=== PATIENT | male | born 1940 | race Caucasian/White ===

== ENCOUNTER 2017-03-15 17:55 | Inpatient (IN) | payer MEDICARE, OTHER ==
[~2017-03-15] VITALS: Ht 180.3 cm; Wt 101.0 kg
--- NOTE | ~2017-03-15 | NDGEN ---
PATIENT'S NAME: COURTNEY ALVAREZ [facility] AGE: 76 Y [address] ROOM: [place] [address] LOCATION: [facility] ADMIT DATE: 03/15/2017 Neurodiagnostics DISCHARGE DATE: FAMILY PHYSICIAN: Gray Soliman MD ATTENDING PHYSICIAN: JOSE MANUEL WEST PROCEDURE: ELECTROENCEPHALOGRAM DATE OF PROCEDURE: 03/16/2017 PROCEDURE PERFORMED: EEG. The patient had this EEG done on 03/16/2017 at 12:40 p.m. INDICATIONS FOR PROCEDURE: This 76-year-old male patient who possibly has a history of alcohol use and most recent history of stopping some medications that essentially acting. He had a generalized tonic-clonic seizure of the first-time onset. The patient was alert and oriented at the time of this study, but he has some cognitive deficits at baseline, which are more consistent with dementia. The general background rhythm is seen best in the posterior and central leads, reveals an 8 hertz approaching alpha rhythm with amplitudes between 15 to 25 microvolts. During the recording, there was a lot of movement artifacts and grimacing with eyes closed. There was no change in the general background rhythm and photic stimulation did not also change the background rhythm. There were a few periods during the recording of burst activities where the background rhythm was slowed and become delta. This was often seen throughout most of the leads, but in particular seemed to have a predilection for the temporal lobe. delta activity lasts for a period of 10 seconds. They were present with the patient's eyes closed. They would not follow by any type of generalization or other epileptiform features. They were seen elsewhere within the study. They may represent some type of postictal phenomena related to this seizure. IMPRESSION: The general background rhythm revealed a slightly slow 8 hertz rhythm that was intermittently mixed with 5-10 hertz delta rhythm that occasionally was seen throughout the recording. This may be associated with some recent seizure activity and may be a postictal phenomena as the patient was drowsy during the course of the EEG. There was no clear seizure activity or other epileptiform features such as spike and wave pattern. The patient was not on seizure medication at the time of this study. PATIENT'S NAME: COURTNEY ALVAREZ [facility] AGE: 76 Y [address] ROOM: [address] [address] LOCATION: [facility] ADMIT DATE: 03/15/2017 Neurodiagnostics DISCHARGE DATE: FAMILY PHYSICIAN: Gray Soliman MD ATTENDING PHYSICIAN: JOSE MANUEL WEST MD MADONNA BERGMAN/lolly /[id number] dtt: 04/12/17 1602 , JULIANE FERNANDO dtd: 03/18/17 1742
--- NOTE | ~2017-03-15 | HP ---
PATIENT'S NAME: COURTNEY ALVAREZ [facility] AGE: 76 Y [address] ROOM: [place] [address] LOCATION: [facility] ADMIT DATE: 03/15/2017 History & Physical DISCHARGE DATE: FAMILY PHYSICIAN: PHYSICIAN, UNKNOWN ATTENDING PHYSICIAN: JOSE MANUEL WEST DATE OF SERVICE: PRINCIPAL DIAGNOSES: Acute encephalopathy, fall, tonic-clonic seizures, and syncope. HISTORY OF PRESENT ILLNESS: This is a 76-year-old male with history of multiple comorbidities and complaints and type 2 diabetes, tobacco dependence, hypertension, an undisclosed psych disorder, hyperlipidemia, COPD, and coronary artery disease, admitted to the ICU here today after he presented to the emergency room at [facility] after he sustained a fall. I was not able to get much history out of the patient since he appeared confused and is barely responsive to my questions, but he does know his name and where he lives, and that is the most I can get out of him. In any case, the story is the patient lives at home with a caregiver that keeps an eye on him at home and was apparently found down this morning and caregiver subsequently had him come to the emergency room to be evaluated. While he was being evaluated in the emergency room at [place], he had a witnessed tonic-clonic type seizure, which lasted for about a minute and had been postictal since. Initial workup included mild elevation of troponin. However, EKG was nondiagnostic. Did have some prolonged QTC on his EKG though. The patient is lying in bed comfortably, although sleepy and has not gotten benzodiazepine for seizure. It appears that he is postictal currently. PAST MEDICAL HISTORY: 1. Type 2 diabetes. 2. Coronary artery disease. 3. Paroxysmal atrial fibrillation, on Coumadin. 4. Hyperlipidemia. 5. Hypertension. FAMILY HISTORY: Attempted to get family history from the patient, but due to his current mental status and family not being around him, not able to get full family history. SOCIAL HISTORY: Attempted to gather social history but was not able to gather social history due to the patient's current mental state as well. PATIENT'S NAME: COURTNEY ALVAREZ [facility] AGE: 76 Y [address] ROOM: [place] [address] LOCATION: [facility] ADMIT DATE: 03/15/2017 History & Physical DISCHARGE DATE: FAMILY PHYSICIAN: PHYSICIAN, UNKNOWN ATTENDING PHYSICIAN: JOSE MANUEL WEST REVIEW OF SYSTEMS: I was not able to conduct a full review of systems due to his current mental state. However, the patient is resting in bed. Does not appear to be in distress, but he is sleepy minimally responsive. LABORATORY DATA: Laboratory values from [facility]: Creatinine of 1 and troponin mildly elevated at 0.7. CT of the head unremarkable. PHYSICAL EXAMINATION: VITAL SIGNS: Blood pressure 118/74, heart rate 74, respiratory rate 23, and saturating 96% on 2 L oxygen per nasal cannula. GENERAL: The patient is groggy but arousable. HEENT: Dry mucous membranes. No scleral icterus or conjunctival pallor noted. SKIN: Bilateral venous insufficiency ulcers on the lower extremities. HEART: S1 and S2. Regular rate and rhythm and tachycardic. CHEST: Diffuse wheezing bilaterally. ABDOMEN: Mildly distended and tender to deep palpation. Positive bowel sounds. Soft. NEUROLOGIC: The patient moves all his extremities. MUSCULOSKELETAL: No joint effusion, tenderness, or erythema noted. ASSESSMENT AND PLAN: 1. Acute encephalopathy. This appears to be due to postictal state. The patient was noted to have tonic-clonic type seizure in the emergency room at [facility] that lasted about 2 minutes. The patient is still sleepy. The patient apparently had not gotten any benzodiazepine for this. We will continue to monitor. 2. New onset seizure. Unsure if he has a history of this, but reviewing his records, does not appear to be the case. I will get an MRI of his brain in the morning in any case. The patient is noted to be on benzodiazepines at home and is also known to be noncompliant with his medication and I wonder if this is a benzodiazepine withdrawal seizure. I will have Neurology evaluate him in the morning for this. 3. Fall with possible relation to syncope. I will trend his troponins. EKG nondiagnostic, but has a prolonged QTC. I will repeat his EKG. Per report, his QTC is over 530, which was a change after his seizure like episode, which was in a normal range prior to that. The patient is known to Dr. Hoffman and he will be evaluated by Dr. Hoffman as well. 4. Type 2 diabetes. We will use sliding scale insulin and Accu-Cheks. 5. Chronic obstructive pulmonary disease, long history of smoking. We will continue his home nebulizer treatment and we will monitor. 6. Deep vein thrombosis prophylaxis. We will use SCDs and subcutaneous heparin. 7. Paroxysmal atrial fibrillation, on Coumadin. I will hold the patient's PATIENT'S NAME: COURTNEY ALVAREZ [facility] AGE: 76 Y [address] ROOM: [place] [address] LOCATION: [facility] ADMIT DATE: 03/15/2017 History & Physical DISCHARGE DATE: FAMILY PHYSICIAN: PHYSICIAN, UNKNOWN ATTENDING PHYSICIAN: JOSE MANUEL WEST Coumadin at this point due to his multiple morbidities, fall risk, and noncompliant issues and re-evaluate. MD LIBRADO CHURCHILL/lloly /[id number] D: 326 T: 000 HISTORY & PHYSICAL
--- NOTE | ~2017-03-15 | CON ---
PATIENT'S NAME: COURTNEY ALVAREZ [facility] AGE: 76 Y [address] ROOM: [id number] [place], [place] [address] LOCATION: [facility] ADMIT DATE: 03/15/2017 Consultation DISCHARGE DATE: FAMILY PHYSICIAN: Gray Soliman MD ATTENDING PHYSICIAN: JOSE MANUEL WEST DATE OF CONSULTATION: 03/16/2017 REFERRING PHYSICIAN: JULIANE FERNANDO MD The patient was seen in neurologic consultation on 03/16/2017 at 9:30 p.m. HISTORY OF PRESENT ILLNESS: History is essentially delved from the patient's son's discussion with me. He states that his father is a 76-year-old male patient whom he states has been diagnosed with some type of dementing process over the course of many years, perhaps, going out to 5-6 years. He really has poor insight into the nature of his father's diagnosis. He does believe that there is some psychiatric overlay here playing a role, perhaps some depression that commence with the loss of the patient's 7 years ago. Son also points to dementia being present in the patient's mother in the age of 70s, but no other persons in the family had dementia. The son says that he finds his father is somewhat withdrawn on a daily basis, has symptoms of anhedonia, and has poor executive functioning to which he has difficulty in taking care of his basic grooming and bathing as well as any monetary issues, such as paying bills. It is a possibility the patient has an alcohol problem as well as this was mentioned to me by a note from the nurse who spoke to us as the patient was transferred here from the emergency room in [place]. Apparently, the patient has had odd changes in his behavior including some alcohol use, which prompted him to have loss of his privileges to drive. 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 Other than these changes in his psychiatric history, he holds a diagnosis of hyperlipidemia, COPD, coronary artery disease. He also smokes a pack of cigarettes a day. He has a history of hypertension. What prompted the admission here to our hospital as a transfer from [place] is that the patient who does live alone, does have a caregiver who comes in and watches over him apparently found him down at home in the morning. The patient was sent to the emergency room for evaluation. In the emergency room at [place], he was witnessed to have a generalized tonic-clonic seizure that lasted about 1 minute, but he clearly had a postictal period of lethargy and poor responsiveness for many hours. He was noted on laboratory results essentially to have normal labs, but he had a troponin elevation at 1.120, which is subsequently gone down to 0.97. The etiology of his troponin level was possibly in the setting of a cardiac event, but a troponin elevation PATIENT'S NAME: COURTNEY ALVAREZ [facility] AGE: 76 Y [address] ROOM: [id number] [place] [id number] LOCATION: [facility] ADMIT DATE: 03/15/2017 Consultation DISCHARGE DATE: FAMILY PHYSICIAN: Gray Soliman MD ATTENDING PHYSICIAN: JOSE MANUEL WEST can be seen in generalized seizures. Coagulation profile included an INR of 1.13, which is low and not consistent with the patient taking anticoagulation. We were told by the son that he stopped his warfarin therapy for atrial fibrillation as well as stopping multiple medications approximately 2 weeks ago. Here in the hospital, the patient was not placed on any antiseizure medication nor given benzodiazepines, this was done as the patient has remained stable and after being postictal, started to wake up and follow basic commands. When I saw the patient, he was eating dinner and appeared to be in no acute distress. He was communicative, but very superficially, did not engage in much conversation. He had a very flat affect, did not appear to be particularly angry or agitated, but was somewhat fidgety as sitting up in his bed, moving his clothing around and pulling on some wires connected via the monitor. One time when watching him, he suddenly sat up in bed and wanted to get out of the bed to use the urinal, but did not call for any help. He did not seem to be overly confused, but this was inappropriate as he could have fallen. The patient himself did not have any complaints. He really had no insight into why he came to the hospital and after being told that he had a generalized seizure, he did not have much of a response to this. He did not engage in any discussion about his medical issues and simply was inappropriately non-caring. PRIOR MEDICAL HISTORY: Coronary artery disease; atrial fibrillation, supposedly on anticoagulation; history of COPD; depression; he is a current smoker; he has a history of diabetes type 2; and hyperlipidemia. SOCIAL HISTORY: That he has 5 boys, 1 child was adopted. This patient reportedly lives alone for the past 7 years since his . He was retired from multiple jobs during his life. He held down at least 3 jobs up until about 7 years ago, retired from the [employer], but also did work for the [employer]. He smokes a pack of cigarettes a day. The patient denied alcohol use though this is speculative and goes against report from a nurse in his neighborhood who reported to our nurse that the patient has had a recent arrests for DWI. This report was not confirmed and not discussed with the patient's son. FAMILY HISTORY: His mother in the 90s, she had Alzheimer's. Father's father in 70s of an unknown cause. ALLERGIES: NO KNOWN DRUG ALLERGIES. HOME MEDICATIONS: PATIENT'S NAME: COURTNEY ALVAREZ [facility] AGE: 76 Y [address] ROOM: [place] [address] [facility] ADMIT DATE: 03/15/2017 Consultation DISCHARGE DATE: FAMILY PHYSICIAN: Gray Soliman MD ATTENDING PHYSICIAN: JOSE MANUEL WEST 1. Simvastatin 40 mg daily. 2. Quetiapine 25 mg twice a day. 3. Omeprazole. 4. Isosorbide mononitrate 30 mg extended release at bedtime. 5. Coumadin, unknown dose. 6. Humulin N insulin 60 units in the morning and 20 units at bedtime. 7. Carvedilol 3.125 mg twice a day. 8. Aspirin 81 mg daily. 9. Albuterol sulfate inhalation nebulizers. 10. Advair Diskus 250/50 mcg inhalation twice a day. 11. Tamsulosin 0.4 mg at bedtime. 12. Spiriva 18 mcg inhalation in the morning. 13. Torsemide 150 mg daily. 14. Tramadol 50 mg 2 times a day as standing for pain. CURRENT MEDICATIONS: Here in the hospital, he was started on: 1. Aspirin 81 mg p.o. daily. 2. Lipitor 40 mg p.o. daily. REVIEW OF SYSTEMS: CONSTITUTIONAL: Mr. Alvarez has had a generalized tonic-clonic seizure, likely associated as to why he was found down at home. His seizure was witnessed in the emergency room. He became postictal and confused during the course of the day and at least over the course of 8-9 hours, he was quite lethargic, but now according to the son, he is back to his baseline. He was eating and did not appear to be in acute distress though he was a bit fidgety and acting somewhat strange, simply put he had a very flat affect, did not seem to be connected as to why he was in the hospital, did not ask any spontaneous questions, answered questions very superficially. CARDIAC: There is history of coronary artery disease and an elevation in troponin. Noted on EKG to show first-degree AV block. Mentioned elevation in the troponin in the setting of a normal creatinine level, possibly associated with a generalized tonic-clonic seizure. PHYSICAL EXAMINATION: GENERAL: The patient is not spontaneous in his speech, answers questions appropriately. He was eating comfortably. He answered questions and had basic conversations with his son. Son reports that he had no recent difficulty in his neurologic skills such as using his arms or legs or walking. There is no known history of ever having the patient with seizures. I did not discuss with the patient necessarily about the patient's alcohol use in front of the patient himself. The patient denied alcohol use. VITAL SIGNS: Pulse of 68 and regular, respiration rate 12, blood pressure 122/72, temperature is afebrile. PATIENT'S NAME: COURTNEY ALVAREZ [facility] AGE: 76 Y [address] ROOM: [address] [address] [facility] ADMIT DATE: 03/15/2017 Consultation DISCHARGE DATE: FAMILY PHYSICIAN: Gray Soliman MD ATTENDING PHYSICIAN: JOSE MANUEL WEST NEUROLOGIC: Cranial nerves: Pupils equal and reactive to light and accommodation. Extraocular muscles are intact. His power was grossly normal in all 4 limbs at 5/5 grade power. Normal bulk and tone. Testing of coordination was brief as the patient's participation is somewhat fleeting, but he did [id number] adequately. He did not do rapid alternating hand movements. I did not ambulate the patient currently. IMPRESSION: Mr. Alvarez is a 76-year-old male patient who has a history of dementia based upon the son's discussion with me privately. 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 I do believe that he abuses alcohol as we were told that he had lost his license to drive. Quite frankly from knowing the patient here briefly, I am not sure as to why he had the ability to drive or even to live alone. He does have some assistance that comes to his home and probably helps him with managing bathing, but according to the nurse, he appeared to be unkempt and disheveled and not bathed. Lookup at his medication did include an antipsychotic medication though I would not expect the patient to have a withdrawal seizure from stopping an antipsychotic. Of more concern is probably his alcohol history and I believe stopping alcohol may have had a role here in a withdrawal seizure, it certainly is a speculation, we have no proof of this. Laboratory results do not point to issues with long-term alcohol use such as low platelet count or elevation in an AST, but this is awfully nonspecific. I did start the patient on memantine for his dementia. He needs to be followed up in our office since I am seeing him for the first time. We will wean up the dosing from 5 mg daily to 10 mg twice a day over the course of the upcoming months. His dementia is probably mixed, associated with reactive depression due to his 's though this is quite longstanding since his 's was 7 years ago, may have schizoaffective disorder, but we do not have much to go on from a psychiatric history and the patient's son who was here could not give me any information with his psychiatric history. I am told that the patient is going to have a cardiac workup and the issue of anticoagulation has been discussed with the son. Certainly, if the patient is not taking his medications and has poor insight into the nature as to why he takes anticoagulation, the importance of this is a very poor sign indeed, I suspect that his dementia is at least moderate to severe and I am not sure of even fall risk issues with this patient who I saw suddenly get up out of bed spontaneously and inappropriately and certainly looked to be a fall risk to me. Nonetheless, the risk for a stroke due to arrhythmia is certainly a consideration and be discussed further with the patient's family. PATIENT'S NAME: COURTNEY ALVAREZ [facility] AGE: 76 Y [address] ROOM: [address] [address] LOCATION: [facility] ADMIT DATE: 03/15/2017 Consultation DISCHARGE DATE: FAMILY PHYSICIAN: Gray Soliman MD ATTENDING PHYSICIAN: JOSE MANUEL WEST MD JRM/raull /[id number] d: 03/19/17 0304 t: 04/12/17 1605, CONSULTATION REPORT
--- NOTE | ~2017-03-15 | CATH ---
Cardiac Diagnostic + PCI Report Demographics Patient Name KIM Barboza Gender Male Date of 1940 Age 76 year(s) Patient Number [id number] Date of Study 03/17/2017 Visit Number [id number] Room Number G6[address] [place] [id number] Ht 180.34 cm Wt 106.6 kg Referring Dalton Castellano MD Primary Physician Physician Berry Castellano MD Secondary Physician Physician Diagnostic Dalton Castellano MD Assisting Physician Physician Interventional Dalton Castellano MD Physician Powerplant Operator Physician Findings and Conclusions Diagnostic Findings and Conclusion 2 vessel CAD Right common iliac is 100% occluded with collaterals Diagnostic Recommendations PCI of RCA Interventional Findings and Conclusion .014 Prowater 2.5 x 20 Emerge 2.5 x 20 Rebel 85% - 0% 3.5 x 20 Rebel 99% - 0% Interventional Recommendations DAP x 1 month Procedure Description The patient was brought to the diagnostic cardiac catheterization-EP laboratory in the fasting, non-sedated state. Informed consent was obtained in the written and verbal form after the risks and benefits were explained. The patient had no further questions and agreed to proceed. The planned puncture-incision site(s) were shaved and prepped with ChloraPrep and draped in the usual sterile manner. Conscious sedation, supplemental oxygen, and pain control medications were delivered by a registered nurse under physician guidance. Surface ECG rhythm, blood pressure measurement, and pulse oximetry were monitored throughout the procedure. Arterial access. The access site was infiltrated with lidocaine. The vessel was entered with the Seldinger technique. A sheath was advanced into the vessel and used for catheter placement. Selective left coronary angiography. A catheter was advanced into the left coronary vessel ostium under Fluoroscopic guidance. Contrast was injected by hand. Images were obtained in multiple projections. Selective right coronary angiography. A catheter was advanced into the right coronary vessel ostium under fluoroscopic guidance. Contrast was injected by hand. Images were obtained in multiple projections. Angioplasty and Stent Placement: A guiding catheter was used to intubate the vessel. A 0.14 wire was then used to cross the lesion. A balloon catheter was placed across the lesion and inflated. The balloon catheter was then removed. A Bare Metal Stent was placed and inflated. Post placement angiograms were performed. Arterial artery hemostasis was achieved. The patient was transferred to a regular nursing floor via cart accompanied by a nurse. The patient left the laboratory in stable condition. Diagnostic Cath Status: Urgent Interventional Cath Status: Urgent Procedure Procedure Type Diagnostic procedure:Angiography:, Coronary Angios PCI procedure:Bare Metal Coronary Stent:, RCA Indications: Abnormal enzymes and Acute TX with elevated troponin. The procedure was explained in detail to the patient. Risks, complications and alternative treatments were reviewed. Written consent was obtained. Angiographic Findings Dominance: Right Cardiac Arteries and Lesion Findings LMCA: Normal (0% Stenosis).large LAD: Single stenosis.large, distal stent, 50% in-stent restenosis; diag 1 is medium, normalThere is a previous stent on Mid LAD Mid subsection showing focal ISR. LCx: Normal (0% Stenosis).medium, normal; OM is medium, normal RCA: Large, dominant; Pl is medium, normal; PDA is medium, normal Lesion on Dist RCA: Distal subsection.85% stenosis 20 mm length reduced to 0%. Pre procedure MERARY II flow was noted. Post Procedure MERARY III flow was present. The guidewire cross was successful.The lesion was diagnosed as a low risk lesion. Devices used - Emerge Balloon 2.5 x 20. 1 inflation(s) to a max pressure of: 6 indira. - 2.5 x 20 Rebel Stent. 2 inflation(s) to a max pressure of: 14 indira. - 2.5 x 20 Rebel Stent. 1 inflation(s) to a max pressure of: 18 indira. Lesion on Mid RCA: Distal subsection.99% stenosis 20 mm length reduced to 0%. Pre procedure MERARY II flow was noted. Post Procedure MERARY III flow was present. The guidewire cross was successful.The lesion was diagnosed as a low risk lesion.Culprit lesion. Devices used - Prowater Wire .014 x 180. Number of passes: 1. - Emerge Balloon 2.5 x 20. 1 inflation(s) to a max pressure of: 14 indira. - 3.5 x 20 Rebel Stent. 2 inflation(s) to a max pressure of: 15 indiar. Coronary Tree Procedure Data Procedure Date Date: 03/17/2017Start: 08:54 AMEnd: 09:54 AM Entry Locations - Retrograde Percutaneous access was performed through the Right Femoral artery. A 6 Fr sheath was inserted. Hemostasis was successfully obtained using Manual Compression. - Retrograde Percutaneous access was performed through the Left Femoral artery (Primary location). A 6 Fr sheath was inserted. Hemostasis was successfully obtained using Angio-Seal STS PLUS ([facility]). Procedure Medications Order and Administration + + + + + !Time !Medication !Dosage !Route ! + + + + + !03/17/2017 08:41 !Potassium Chloride !40 meq !I.V. ! !AM ! ! ! ! + + + + + 03/17/2017 08:48 !Oxygen !6 l/min !NC ! !AM ! ! ! ! + + + + + 03/17/2017 08:48 !Fentanyl !25 mcg !I.V. ! !AM ! ! ! ! + + + + + 03/17/2017 08:52 !Versed !0.5 mg !I.V. ! !AM ! ! ! ! + + + + + !03/17/2017 09:13 !Angiomax (Bivalirudin) !80 mg !I.V. bolus ! !AM !(ACC_5) ! ! ! + + + + + !03/17/2017 09:14 !Fentanyl !25 mcg !I.V. ! !AM ! ! ! ! + + + + + !03/17/2017 09:23 !Nipride !50 mcg !I.C. ! !AM ! ! ! ! + + + + + !03/17/2017 09:26 !Fentanyl !25 mcg !I.V. ! !AM ! ! ! ! + + + + + !03/17/2017 09:32 !Duglase !75 mcg !I.C. ! !AM ! ! ! ! + + + + + !03/17/2017 09:14 !Angiomax (Bivalirudin) !1.75 mg/kg/hr!I.V. bolus ! !AM !(ACC_5) ! ! ! + + + + + !03/17/2017 09:35 !Angiomax (Bivalirudin) ! !I.V. bolus ! !AM !(ACC_5) ! ! ! + + + + + !03/17/2017 09:45 !Brilinta (Ticagrelor) !180 mg !P.O. ! !AM !(ACC_20) ! ! ! + + + + + Devices Used - A6 Fr. BS JL 4 Diag. Catheterwas used for:Left coronary angiography. - A6 Fr. BS JR 4 Diag. Catheterwas used for:Right coronary angiography. - A6 Fr. BS Angled Pigtail Diag. Catheterwas used for:LV Pressures. - A6 Fr. JR4 Guide Catheterwas used for:RCA Intervention. Contrast Material - Isovue 139313 ml Fluoroscopy Time: Diagnostic: 12:48 minutes. Total: 12:48 minutes. Fluoroscopy Dose: Diagnostic: 2753 mGy. Total: 2753 mGy. Estimated Blood Loss: 20 ml. Additional [facility] PCI Information PCI Indication:PCI for high risk Non-STEMI or unstable angina. Medical History Allergies - No known allergies. Risk Factors The patient risk factors include:prior PCI on 08/08/2009;peripheral arterial disease, obesity, hypertension, family history of premature CAD, insulin-treated diabetes mellitus, chronic lung disease, last creatinine: 0.7 mg/dl, creatinine clearance: 137.48 ml/min, dyslipidemia, Current/Recent(w/in 1 year) tobacco use, prior heart failure and prior TX . Admission Data Admission Date: 03/15/2017 Admission Time: 06:14 PM Admit Source: [facility] facility Insurance Payors: Medicare. Admission Medications + +------+-------+ + + + + !Medication!Dosage!Times !Last !Last !Administered !Comments ! ! ! !Per Day!Delivery !Delivery ! ! ! ! ! ! !Date !Time ! ! ! + +------+-------+ + + + + !Aspirin ! ! ! ! ! ! ! !(any) ! ! ! ! ! ! ! + +------+-------+ + + + + !Statin ! ! ! ! ! ! ! !(any) ! ! ! ! ! ! ! + +------+-------+ + + + + Clinical Evaluation Leading to Procedure - The patient's CAD presentation was assessed as: Non-STEMI.The symptom onset was first noted on 03/15/2017 06:00 PM(time was estimated). - There were no anginal symptoms. Hemodynamics Condition: Rest O2 Consumption: Estimated: 257.74Heart Rate: 68 bpm Pressures (mmHg) +-----+ + !Site !Pressure ! +-----+ + !AO !119/54 (81) ! +-----+ + Shunts Oxygen Values O2 Capacity 149.6 O2 Consumption 257.74 Discharge Data Discharge Date: 03/21/2017 Hospital Status: Inpatient Signatures dtt: Gray Hoffman (cardio) dtd: 03/17/17 0854 Physician Self Edit
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
--- NOTE | ~2017-03-15 | DS ---
PATIENT'S NAME: COURTNEY ALVAREZ [facility] AGE: 76 Y [address] ROOM: [place] [address] LOCATION: GPCU ADMIT DATE: 03/15/2017 Discharge Summary DISCHARGE DATE: 03/21/2017 FAMILY PHYSICIAN: Gray Soliman MD ATTENDING PHYSICIAN: Mary Lou Mccann ADMITTING DIAGNOSIS: Kwd-TO-mwogbsw elevation myocardial infarction. DISCHARGE DIAGNOSIS: Ixz-EF-myvpjsz elevation myocardial infarction, status post stent placement. SECONDARY DIAGNOSES: 1. Syncope. 2. Questionable seizure. 3. Acute on chronic diastolic heart failure. 4. Dementia with disturbance behavior. 5. Diabetes mellitus, type 2. 6. Paroxysmal atrial fibrillation. 7. Obesity. 8. Dementia. 9. Medical non-compliance. PROCEDURES: 1. Echocardiogram. 2. Coronary angiogram done on 03/17/2017 with two bare-metal stents placement on the RCA by Dr. Hoffman. CONSULTATIONS: Neurology and Cardiology. HISTORY OF PRESENT ILLNESS: The patient is a 76-year-old gentleman with history of multiple comorbidities including type 2 diabetes mellitus, tobacco dependence, hypertension, dementia with behavioral disturbance, hyperlipidemia, COPD, and coronary artery disease, who is here with syncope. The patient lives by himself, and has a caregiver who keeps an eye on him and was found at home on the floor, found down. The patient was taken to the Emergency Room at [facility], and over there, there was a questionable tonic-clonic type seizure that was witnessed. The patient was transferred to our hospital for further workup of possible seizure and syncope. HOSPITAL COURSE: The patient was admitted. On initial evaluation, the patient was noted to have elevated troponin. CT of head was unremarkable. The patient was seen by social worker health services. The patient had echocardiogram and also a coronary angiogram done on 03/17/2017, status post two times bare-metal stent placement on the RCA. The patient was started on aspirin and Brilinta. The patient was also seen by Neurology for seizure workup. The patient was seen by Neurology, PATIENT'S NAME: COURTNEY ALVAREZ [facility] AGE: 76 Y [address] ROOM: [place] [address] LOCATION: GPCU ADMIT DATE: 03/15/2017 Discharge Summary DISCHARGE DATE: 03/21/2017 FAMILY PHYSICIAN: Gray Soliman MD ATTENDING PHYSICIAN: Mary Lou Mccann no seizure was witnessed during stay, and no anti-seizure medication was started. The patient lives by himself, and there was a concern of him being noncompliant with medication and also has moderate dementia with behavioral disturbance. Family member is worried for patient to go back home. The patient was seen by PT/OT during stay, and was a candidate for [facility] before discharge. The patient was discharged to [facility]. The patient has a history of paroxysmal atrial fibrillation, and Coumadin was held for his coronary angiogram. However, after coronary angiogram, Coumadin was restarted. The patient was also found to be in acute diastolic heart failure, and the patient was given diuretics with adequate improvement. Of note, the patient has chronic hypoxia secondary to COPD, and is on 3 L to 4 L at home. CONDITION: Stable. DISPOSITION: Prison Facility. DISCHARGE MEDICATIONS: Please see MAR. DISCHARGE INSTRUCTIONS: To follow up with the house physician with a daily INR for Coumadin. To keep Coumadin between 2 to 3. FOLLOWUP: Follow up with house physician, Cardiology, and Neurology as outpatient. Greater than 30 minutes was spent on patient care. Greater than 30 minutes was spent on discharge planning. MD OMID HERBERT/modl /[id number] d: 03/22/17 0209 t: 04/01/17 1301, DISCHARGE SUMMARY
--- NOTE | ~2017-03-15 | ECHO ---
Transthoracic Echocardiography Report (TTE) Demographics Patient Name COURTNEY ALVAREZ Date of Study 03/16/2017 Patient Number [id number] Visit Number [id number] Date of 1940 Room Number G6214 Accession Number [id number] Gender Male Age 76 year(s) Referring Dalton Castellano MD Rehabilitation Supervisor Physician Physician Interpreting Dalton Castellano MD Social Media Campaign Manager Physician Supervising Ordering Physician MD/SKINNY Nurse Stress Vice President Of Academic Affairs Conclusions Procedure Type of Study TTE procedure:2D Echocardiogram. Procedure Date Date: 03/16/2017 Start: 05:09 PM M-Mode/2D Measurements LV Diastolic Dimension: 4.62 cm LV Systolic Dimension: 3.51 cm AO Root Dimension: 2.8 cm LVOT: 2 cm LVOT VTI: 19.8 cm LV Stroke volume: 62.17 ml Doppler Measurements AV Peak Velocity: 2.07 m/s MV Peak E-Wave: 1.36 m/s AV Peak Gradient: 17.14 mmHg AV Mean Gradient: 8 mmHg MV P1/2t: 53 msec LVOT Peak Velocity: 0.82 m/s TR Velocity:1.48 m/s PV Peak Velocity: 1.2 m/s TR Gradient:8.76 mmHg PV Peak Gradient: 5.76 mmHg A' Septal Velocity: 0.09 m/s E' Septal Velocity: 0.07 m/s A' Lateral Velocity: 0.26 m/s E' Lateral Velocity: 0.17 m/s Findings Left Ventricle Mild concentric left ventricular hypertrophy. Wilson is mild to moderate hypokinetic LVEF is 50-55% Right Ventricle Mild to moderately dilated right ventricle. Left Atrium Normal left atrial size. Right Atrium The right atrium is mild to moderately dilated. Aortic Valve There is mild aortic regurgitation by color Doppler. The aortic valve is moderately sclerotic. Tricuspid Valve Normal tricuspid valve structure and function. Pulmonic Valve Normal pulmonic valve structure and function. Pericardial Effusion No evidence of pericardial effusion. Pleural Effusion No evidence of pleural effusion. Signature dtt: Gray Hoffman (cardio) dtd: 03/16/17 1709 Physician Self Edit
[2017-03-16 01:40] LABS: BASOPHIL # 0.1 K/uL (0.0-0.2); BASOPHIL % 0.6 %; EOSINOPHIL # 0.1 K/uL (0.0-0.5); EOSINOPHIL % 0.5 %; HEMATOCRIT 37.5 % (37.0-53.0); HEMOGLOBIN 11.8 g/dL (11.0-16.0); IMMATURE GRANULOCYTE % 0.2 %; LYMPHOCYTE # 1.7 K/uL (0.8-4.0); LYMPHOCYTE % 18.2 %; MCH 31.1 pg (27.0-34.0); MCHC 31.5 gm/dL (32.0-36.5); MCV 98.9 fl (83.0-98.0); MONOCYTE # 0.7 K/uL (0.0-1.0); MPV 9.3 fl (9.4-12.4); NEUTROPHIL # (ANC) 6.8 K/uL (1.4-9.0); NEUTROPHIL % 73.5 %; NRBC % 0 /100WBC (0-0.00); PLATELET COUNT 233 K/uL (150-450); RBC 3.79 M/uL (3.50-5.50); RDW-CV 13.7 % (11.9-14.6); WBC 9.3 K/uL (4.0-11.0)
[2017-03-16 01:57] LABS: ALBUMIN 2.4 gm/dL (3.5-5.0); ANION GAP 10.5 (10.0-19.0); CALCIUM 7.6 mg/dL (8.5-10.5); CREATININE 0.8 mg/dL (0.6-1.3); PHOSPHORUS 2.6 mg/dL (2.5-4.9); POTASSIUM 3.5 mMol/L (3.7-5.1)
[2017-03-16 01:58] LABS: INR - (THERAPEUTIC) 1.08 (0.92-1.07); PROTIME 11.4 SECONDS (9.8-11.4)
[2017-03-16 06:13] LABS: BASOPHIL # 0.1 K/uL (0.0-0.2); BASOPHIL % 0.8 %; EOSINOPHIL # 0.1 K/uL (0.0-0.5); EOSINOPHIL % 0.9 %; HEMATOCRIT 34.9 % (37.0-53.0); HEMOGLOBIN 11.1 g/dL (11.0-16.0); IMMATURE GRANULOCYTE % 0.4 %; LYMPHOCYTE # 1.8 K/uL (0.8-4.0); LYMPHOCYTE % 19.3 %; MCH 31.3 pg (27.0-34.0); MCHC 31.8 gm/dL (32.0-36.5); MCV 98.3 fl (83.0-98.0); MONOCYTE # 0.7 K/uL (0.0-1.0); MONOCYTE % 7.7 %; MPV 9.2 fl (9.4-12.4); NEUTROPHIL # (ANC) 6.6 K/uL (1.4-9.0); NEUTROPHIL % 70.9 %; NRBC % 0 /100WBC (0-0.00); PLATELET COUNT 226 K/uL (150-450); RBC 3.55 M/uL (3.50-5.50); RDW-CV 13.6 % (11.9-14.6); WBC 9.2 K/uL (4.0-11.0)
[2017-03-16 06:22] LABS: INR - (THERAPEUTIC) 1.13 (0.92-1.07); PROTIME 11.9 SECONDS (9.8-11.4)
[2017-03-16 06:26] LABS: ALBUMIN 2.4 gm/dL (3.5-5.0); ANION GAP 9.2 (10.0-19.0); CALCIUM 7.6 mg/dL (8.5-10.5); CREATININE 0.9 mg/dL (0.6-1.3); MAGNESIUM 2.1 mg/dL (1.8-2.6); PHOSPHORUS 2.2 mg/dL (2.5-4.9); POTASSIUM 3.2 mMol/L (3.7-5.1)
[2017-03-17 05:23] LABS: BASOPHIL # 0.1 K/uL (0.0-0.2); BASOPHIL % 1.1 %; EOSINOPHIL # 0.2 K/uL (0.0-0.5); HEMATOCRIT 34.6 % (37.0-53.0); IMMATURE GRANULOCYTE % 0.2 %; LYMPHOCYTE # 1.3 K/uL (0.8-4.0); LYMPHOCYTE % 16.4 %; MCH 31.4 pg (27.0-34.0); MCHC 31.8 gm/dL (32.0-36.5); MCV 98.9 fl (83.0-98.0); MONOCYTE # 0.7 K/uL (0.0-1.0); MONOCYTE % 8.1 %; MPV 9.2 fl (9.4-12.4); NEUTROPHIL # (ANC) 5.9 K/uL (1.4-9.0); NEUTROPHIL % 72.2 %; NRBC % 0 /100WBC (0-0.00); PLATELET COUNT 218 K/uL (150-450); RDW-CV 13.5 % (11.9-14.6); WBC 8.2 K/uL (4.0-11.0)
[2017-03-17 05:29] LABS: INR - (THERAPEUTIC) 1.15 (0.92-1.07); PROTIME 12.1 SECONDS (9.8-11.4)
[2017-03-17 05:37] LABS: ALBUMIN 2.3 gm/dL (3.5-5.0); ANION GAP 10.1 (10.0-19.0); BLOOD UREA NITROGEN 7 mg/dL (6-24); CHLORIDE 106 mMol/L (96-110); CO2 32 mMol/L (22-32); CREATININE 0.7 mg/dL (0.6-1.3); PHOSPHORUS 2.1 mg/dL (2.5-4.9); POTASSIUM 3.1 mMol/L (3.7-5.1); SODIUM 145 mMol/L (135-145)
[2017-03-17 05:38] LABS: CALCIUM 7.4 mg/dL (8.5-10.5)
[2017-03-18 05:46] LABS: BASOPHIL # 0.1 K/uL (0.0-0.2); BASOPHIL % 0.5 %; EOSINOPHIL # 0.2 K/uL (0.0-0.5); EOSINOPHIL % 2.2 %; HEMATOCRIT 35.6 % (37.0-53.0); HEMOGLOBIN 11.5 g/dL (11.0-16.0); IMMATURE GRANULOCYTE % 0.2 %; LYMPHOCYTE # 1.4 K/uL (0.8-4.0); LYMPHOCYTE % 15.5 %; MCH 30.9 pg (27.0-34.0); MCHC 32.3 gm/dL (32.0-36.5); MCV 95.7 fl (83.0-98.0); MONOCYTE # 0.6 K/uL (0.0-1.0); MONOCYTE % 6.9 %; MPV 9.4 fl (9.4-12.4); NEUTROPHIL # (ANC) 6.9 K/uL (1.4-9.0); NEUTROPHIL % 74.7 %; NRBC % 0 /100WBC (0-0.00); PLATELET COUNT 256 K/uL (150-450); RBC 3.72 M/uL (3.50-5.50); RDW-CV 13.2 % (11.9-14.6); WBC 9.2 K/uL (4.0-11.0)
[2017-03-18 05:51] LABS: INR - (THERAPEUTIC) 1.16 (0.92-1.07); PROTIME 12.2 SECONDS (9.8-11.4)
[2017-03-18 06:04] LABS: ALBUMIN 2.6 gm/dL (3.5-5.0); ANION GAP 9.3 (10.0-19.0); CALCIUM 7.6 mg/dL (8.5-10.5); CREATININE 0.8 mg/dL (0.6-1.3); POTASSIUM 3.3 mMol/L (3.7-5.1); TOTAL BILIRUBIN 0.9 mg/dL (0.0-1.5); TOTAL PROTEIN 6.1 g/dL (6.0-8.4)
[2017-03-18] MEDS ORDERED: TYLENOL EXTRA500 MG PO (09:52)
[2017-03-18] MEDS ORDERED: COREG 3.1253.125 MG PO (09:53)
[2017-03-18] MEDS ORDERED: ASPIRIN LO-DOSE81 MG PO (09:53)
[2017-03-18] MEDS ORDERED: IMDUR30 MG PO (09:54)
[2017-03-18] MEDS ORDERED: KLOR-CON SPRIN10 MEQ PO ×2 (09:54→09:55)
[2017-03-18] MEDS ORDERED: FLOMAX0.4 MG PO (09:56)
[2017-03-18] MEDS ORDERED: ZOCOR10 MG PO (09:56)
[2017-03-18] MEDS ORDERED: SEROQUEL25 MG PO (09:56)
[2017-03-18] MEDS ORDERED: THERAGRAN-M1 TAB PO (09:57)
[2017-03-18] MEDS ORDERED: TORSEMIDE100 MG PO (09:57)
[2017-03-18] MEDS ORDERED: ULTRAM50 MG PO (09:57)
[2017-03-18] MEDS ORDERED: COUMADIN ** IA5 MG PO ×2 (09:58→10:00)
[2017-03-18] MEDS ORDERED: GLUCOSAMINE &1 EACH PO (10:00)
[2017-03-18] MEDS ORDERED: NEURONTIN100 MG PO (10:01)
[2017-03-18] MEDS ORDERED: HUMULIN N100 UNIT/1 SUB-Q ×2 (10:13→10:14)
[2017-03-18] MEDS ORDERED: AZELASTINE137 MCG/0. NOSE (10:15)
[2017-03-19 19:49] LABS: ALBUMIN 2.9 gm/dL (3.5-5.0); ANION GAP 10.3 (10.0-19.0); CALCIUM 7.6 mg/dL (8.5-10.5); CREATININE 1.2 mg/dL (0.6-1.3); PHOSPHORUS 3.8 mg/dL (2.5-4.9); POTASSIUM 3.3 mMol/L (3.7-5.1)
[2017-03-20 03:49] LABS: BASOPHIL # 0.1 K/uL (0.0-0.2); BASOPHIL % 0.7 %; EOSINOPHIL # 0.3 K/uL (0.0-0.5); HEMATOCRIT 40.4 % (37.0-53.0); HEMOGLOBIN 13.2 g/dL (11.0-16.0); IMMATURE GRANULOCYTE % 0.4 %; LYMPHOCYTE # 2.3 K/uL (0.8-4.0); LYMPHOCYTE % 21.3 %; MCH 31.3 pg (27.0-34.0); MCHC 32.7 gm/dL (32.0-36.5); MCV 95.7 fl (83.0-98.0); MONOCYTE # 0.7 K/uL (0.0-1.0); MONOCYTE % 6.5 %; MPV 9.6 fl (9.4-12.4); NEUTROPHIL # (ANC) 7.3 K/uL (1.4-9.0); NEUTROPHIL % 68.1 %; NRBC % 0 /100WBC (0-0.00); RBC 4.22 M/uL (3.50-5.50); RDW-CV 13.3 % (11.9-14.6); WBC 10.7 K/uL (4.0-11.0)
[2017-03-20 03:51] LABS: PLATELET COUNT 317 K/uL (150-450)
[2017-03-20 03:57] LABS: INR - (THERAPEUTIC) 1.1 (0.92-1.07); PROTIME 11.6 SECONDS (9.8-11.4)
[2017-03-20 04:07] LABS: ALBUMIN 2.9 gm/dL (3.5-5.0); ANION GAP 8.6 (10.0-19.0); CALCIUM 7.8 mg/dL (8.5-10.5); POTASSIUM 3.6 mMol/L (3.7-5.1); TOTAL BILIRUBIN 0.7 mg/dL (0.0-1.5); TOTAL PROTEIN 6.9 g/dL (6.0-8.4)
[2017-03-21 03:41] LABS: INR - (THERAPEUTIC) 1.14 (0.92-1.07)
[2017-03-21 03:49] LABS: ALBUMIN 2.8 gm/dL (3.5-5.0); CALCIUM 7.7 mg/dL (8.5-10.5); CREATININE 1.2 mg/dL (0.6-1.3); POTASSIUM 3.7 mMol/L (3.7-5.1); TOTAL BILIRUBIN 0.6 mg/dL (0.0-1.5); TOTAL PROTEIN 6.5 g/dL (6.0-8.4)
[2017-03-21 03:52] LABS: ANION GAP 8.7 (10.0-19.0)
== END 2017-03-21 11:40 | DRG 248 ==
LOC: GPCU 18:14 → GICU 18:14 → GPCU 03-17 17:03
PROVIDERS: Internal Medicine; Internal Medicine Interventional Cardiology; ADMIT Internal Medicine
PROC: B211YZZ Fluoroscopy of Multiple Coronary Arteries using Other Contrast (ICD-10-PCS; principal; 2017-03-17)
PROC: 4A023N7 Measurement of Cardiac Sampling and Pressure, Left Heart, Percutaneous Approach (ICD-10-PCS; principal; 2017-03-17)
PROC: 02703DZ Dilation of Coronary Artery, One Artery with Intraluminal Device, Percutaneous Approach (ICD-10-PCS; principal; 2017-03-17)
DX: I21.4 Non-ST elevation (NSTEMI) myocardial infarction (principal); I50.33 Acute on chronic diastolic (congestive) heart failure; G93.40 Encephalopathy, unspecified; F03.91 Unspecified dementia, unspecified severity, with behavioral disturbance; I48.0 Paroxysmal atrial fibrillation; J96.11 Chronic respiratory failure with hypoxia; G40.409 Other generalized epilepsy and epileptic syndromes, not intractable, without status epilepticus; Z99.81 Dependence on supplemental oxygen; I12.9 Hypertensive chronic kidney disease with stage 1 through stage 4 chronic kidney disease, or unspecified chronic kidney disease; J44.9 Chronic obstructive pulmonary disease, unspecified; E11.9 Type 2 diabetes mellitus without complications; R55 Syncope and collapse; E66.9 Obesity, unspecified; Z91.19 Patient's noncompliance with other medical treatment and regimen; Z79.01 Long term (current) use of anticoagulants; F17.210 Nicotine dependence, cigarettes, uncomplicated; E78.5 Hyperlipidemia, unspecified; I25.10 Atherosclerotic heart disease of native coronary artery without angina pectoris; Z91.81 History of falling; N18.9 Chronic kidney disease, unspecified
CPT/HCPCS: C1725; C1760; C1769; C1876; C1887; C8929; J0461; J0583; J1644; J1940; J2250; J3010; J3480; J7030; J7040; J7050; J7060; Q9957